=== PATIENT | female | born 2000 | race African-American/Black ===

== ENCOUNTER 2021-08-03 08:15 | Emergency (ER) | payer SELFPAY | END 2021-08-03 10:20 | disposition home or self-care (01) | LOC: CSHERS 08:15 | DX: A60.00 Herpesviral infection of urogenital system, unspecified (principal) | CPT/HCPCS: 99283 ==

== ENCOUNTER 2022-03-02 16:11 | Emergency (ER) | payer OTHER, SELFPAY ==
[2022-03-02 18:43] LABS: #Basophils 0.1 10x3/uL (0.0-0.2); #Eosinphils 0.1 10x3/uL (0.0-0.5); #Monocytes 0.6 10x3/uL (0.0-1.1); #Neutrophils 10.3 10x3/uL (1.5-8.4); %Basophils 0.4 % (0.0-2.0); %Eosinophils 0.6 % (0.0-6.0); %Lymphocytes 21.4 % (18.0-47.0); %Neutrophils 73.2 % (40.0-75.0); Hemoglobin 11.2 g/dL (12.0-15.5); Mean Corpuscular HGB CONC 33.7 g/dL (32.0-36.0); Mean Platelet Volume 9.3 fl (7.4-10.4); Platelet Count 330 10x3/uL (150-450); RBC Distribution Width 13.1 % (11.5-14.5); Red Blood Cell (RBC) Count 3.86 10x6/uL (3.90-5.03); White Blood Cell (WBC) Count 14.1 10x3/uL (3.5-10.5)
[2022-03-02 18:52] LABS: ALT (SGPT) Less than 6 U/L (8-55); AST (SGOT) 11 U/L (5-34); Albumin 3.8 g/dL (3.5-5.0); Alkaline Phosphatase 45 U/L (40-110); Anion Gap 12 mmol/L (10-20); BUN (Urea Nitrogen) Less than 4 mg/dL (7.0-18.7); Bilirubin, Total 0.2 mg/dL (0.2-1.2); Calc. Creatinine Clearance 0 mL/min (70-130); Calcium 9.5 mg/dL (7.8-10.44); Carbon Dioxide 23 mmol/L (22-29); Chloride 105 mmol/L (98-107); Estimated GFR 129; Globulin 3.7 g/dL (2.4-3.5); Glucose 88 mg/dL (70-105); Potassium 3.8 mmol/L (3.5-5.1); Protein, Total 7.5 g/dL (6.0-8.3); Sodium 136 mmol/L (136-145)
[2022-03-02 19:43] LABS: Bilirubin Neg (Negative); Blood, Urine 150 (Negative); Clarity Cloudy (Clear); Glucose, Urine (Dipstick) Normal (Negative); Ketone, Urine Negative (Negative); Leukocyte 25 (Negative); Nitrite Negative (Negative); Protein, Urine (Dipstick) Negative (Neg-Trace); Urobilinogen Normal mg/dL (Less than 2)
[2022-03-02 19:54] LABS: Bacteria/HPF 4+ HPF (None Seen); Mucous/LPF 2+ LPF (<2+); RBC/HPF 0-3 HPF (0-3); WBC/HPF 0-3 HPF (0-3)
== END 2022-03-02 20:28 | disposition home or self-care (01) ==
LOC: CSHERS 16:11
DX: O20.9 Hemorrhage in early pregnancy, unspecified (principal); O23.41 Unspecified infection of urinary tract in pregnancy, first trimester; Z3A.12 12 weeks gestation of pregnancy
CPT/HCPCS: 80053; 81003; 81015; 84702; 85025; 86850; 86900; 86901; 87086

== ENCOUNTER 2022-04-04 20:43 | Emergency (ER) | payer OTHER | END 2022-04-04 21:10 | disposition home or self-care (01) | LOC: CSHERS 20:43 | DX: O9A.212 Injury, poisoning and certain other consequences of external causes complicating pregnancy, second trimester (principal); S30.1XXA Contusion of abdominal wall, initial encounter; Z3A.16 16 weeks gestation of pregnancy; W19.XXXA Unspecified fall, initial encounter | CPT/HCPCS: 99283 ==

== ENCOUNTER 2022-04-21 01:37 | Emergency (ER) | payer OTHER ==
[2022-04-21] MEDS ORDERED: Acetaminophen 500 MG TAB ONE (02:17)
== END 2022-04-21 02:33 | disposition home or self-care (01) ==
LOC: CSHERS 01:37
DX: O99.352 Diseases of the nervous system complicating pregnancy, second trimester (principal); G89.29 Other chronic pain; M25.571 Pain in right ankle and joints of right foot; M25.572 Pain in left ankle and joints of left foot; Z3A.18 18 weeks gestation of pregnancy
CPT/HCPCS: 99283

== ENCOUNTER 2023-03-31 22:16 | Emergency (ER) | payer BC, OTHER | END 2023-04-01 02:58 | disposition home or self-care (01) | LOC: CSHERS 22:16 | DX: R11.2 Nausea with vomiting, unspecified (principal); F17.290 Nicotine dependence, other tobacco product, uncomplicated | CPT/HCPCS: 99283 ==

== ENCOUNTER 2023-07-14 11:54 | Emergency (ER) | payer OTHER | END 2023-07-14 12:36 | disposition home or self-care (01) | LOC: CSHERS 11:54 | DX: J02.9 Acute pharyngitis, unspecified (principal); F17.290 Nicotine dependence, other tobacco product, uncomplicated | CPT/HCPCS: 99283 ==